=== PATIENT | female | born 1965 | race Caucasian/White ===

== ENCOUNTER 2017-01-26 17:52 | Emergency (ER) | payer OTHER ==
--- NOTE | 2017-01-26 18:34 | DI ---
CLINICAL HISTORY: Dog Bite. Puncture wounds and laceration to the radial side of the wrist. PREVIOUS EXAM: Contralateral wrist from August 14, 2008 FINDINGS/TECHNIQUE: 3 views of the left wrist are obtained, and demonstrate anatomic alignment witho ut fractures. 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 There is some so ft tissue thickening, and stranding, but there is no evidence of radiopaque foreign body nor perioste al reaction. IMPRESSION: 1. No acute bony injury. 2. Soft tissue swelling as above.
[2017-01-26] MEDS: Lidocaine 1% 10 MG/ML - 20 ML VIAL SUBCUT ONE (18:45)
[2017-01-26 18:51] VITALS: RESP 18; TEMP 97
[2017-01-26] MEDS ORDERED: BACITRACIN 0.9 GM PACKET OINT TOPICAL ONE (19:03)
[2017-01-26] MEDS: BACITRACIN 0.9 GM PACKET OINT TOPICAL ONE (19:10)
[2017-01-26] MEDS: Amoxicill/Clav 875/125mg Tab 1 TAB TAB PO SCH (19:10)
--- NOTE | 2017-01-26 19:43 | PDOC ---
Animal Bite HPI - General Chief Complaint: Animal Bite Stated Complaint: dog bite left arm Date Seen by Provider: 01/26/17 Time Seen by Provider: 18:05 Source: POSITIVE: Patient Exam Limitations: POSITIVE: No limitations Nurse's Notes Reviewed & Considered: Yes - History of Present Illness Initial Comments: The patient is a 52-year-old female who presents to the emergency department with a dog bite to her left wrist. She states that she has 2 dogs in her home both of which belonged to her children and she is watching them. She states that the dogs began fighting and she tried to separate them. She states that one of the dogs bit her on the left wrist. She does have pain to the left wrist especially with any movement as well as some associated puncture wounds. She denies any other associated injuries or complaints. She states she last had a tetanus shot a couple of months ago. She is unsure whether the dogs have been immunized for rabies as they belong to her children however she states she will have access to this information and continues to have the dogs in her possession. Have you received a tetanus shot in the past 10 years?: Yes - Patient Home Medications Home Medications: Home Medications Amitriptyline HCl 50 mg PO DAILY 06/10/14 Colesevelam HCl [Welchol] 600 mg PO TID 06/10/14 Duloxetine HCl [Cymbalta] 120 mg PO DAILY 06/10/14 Estropipate 0.75 mg PO DAILY 06/10/14 Gabapentin [Neurontin] 400 mg PO QID 06/10/14 Pravastatin Sodium [Pravachol] 40 mg PO DAILY 06/10/14 Propranolol HCl [Inderal] 40 mg PO DAILY 06/10/14 Ropinirole HCl [Requip] 0.5 mg PO BID 06/10/14 metFORMIN Tab [Glucophage Tab] 1,000 mg PO BID 06/10/14 Amox Tr/Potassium Clavulanate [Augmentin 875-125 Tablet] 1 each PO BID #14 tablet 01/26/17 Hydrocodone Bit/Acetaminophen [[place] 10-325 Tablet] 1 tab PO PRN PRN 01/26/17 Insulin Pump Syringe, 1.8 ml [Minimed [place]] 1 unit SUBCUT AC BK DIN - Patient Allergies Allergies/Adverse Reactions: Allergies Allergy/AdvReac Type Severity Reaction Status Date / Time acetaminophen [From Percocet] AdvReac NAUSEA Verified 01/26/17 18:06 oxycodone HCl [From Percocet] AdvReac NAUSEA Verified 01/26/17 18:06 Past Medical History - heen HEENT History: Denies History Cardiovascular History: Hypertension, Hyperlipidemia Respiratory History: Denies History Gastrointestinal History: Gallbladder Disease, Other (please comment) Additional Gastrointestinal History: hx of cholecystectomy and appendectomy Genitourinary History: Denies History Endocrine History: Type 2 Diabetes (oral), Type 2 Diabetes (insulin) Musculoskeletal History: Other (please comment) Prosthesis or Implant: No Additional Musculoskeletal History: Hx of multiple right knee surgeries Neurological History: Other (please comment) Additional Neurological History: NEUROPATHY Blood Disorders: Denies History Psychiatric History: Depression Female Reproductive History: Hysterectomy Cancer History: Denies History In Past Year Been Physically Harmed or Verbally Threatened: No History of MDRO: No Tobacco Use: Former Smoker Alcohol Use: Rarely Substance Use Type: None Previous Surgical History: Yes Type / Date of Surgery: HYSTERECTOMY. ARACELI. RIGHT KNEE. APPENDECTOMY Significant Family History: No pertinent family hx Past Medical History Reviewed: Reviewed - No Changes ROS - Limitations ROS Limitations: No Limitations (Review of systems otherwise noncontributory) Animal Bite Physical Exam - General Appearance General Appearance: REPORTS: Alert, Cooperative, No Acute Distress - HEENT HEENT: POSITIVE: Head Inspection Nml - Respiratory Respiratory: POSITIVE: No Respiratory Distress, Breath Sounds Normal - Cardiovascular Cardiovascular: POSITIVE: Regular Rate and Rhythm, Heart Sounds Normal - Extremities Additional Extremities Details: Examination left wrist does reveal a puncture to the palmar surface on the ulnar side of the wrist with some extruding fat, there is also a puncture to the dorsum of the wrist at the base of the thumb, she does have limited range of motion at the wrist secondary to pain as well as some generalized swelling of the wrist area, normal sensation and cap refill in her fingers with normal movement of her fingers. - Neuro/Vascular/Tendon Neuro/Vascular/Tendon: POSITIVE: Motor Normal, Sensation Normal Animal Bite Progress - Results Reviewed by me Xrays/CTs/US Reviewed by me: Yes Discussed with Radiologist: Yes Radiology Findings: X-ray of the left wrist is negative for fracture or foreign body per radiologist. - Patient's Progress MDM / ED Course: The wound on the palmar surface of the wrist was injected with lidocaine and cleansed with saline, there was some protruding fat which was trimmed using an iris scissors. The wound on the dorsal surface of the wrist was also cleansed and bandage is applied. X-rays of the left wrist were negative for fracture per radiologist. She was placed in a left wrist splint for comfort. She is advised to continue ice and elevation as well as ibuprofen 600 mg every 6 hours as needed for pain. In addition she was started on Augmentin 875 mg twice a day for 7 days. She is advised return to the emergency room if she develops increased pain or swelling, drainage from the wound, fever, any worsening or change in symptoms. She is advised follow-up with primary care if continued pain in 5-7 days. - Consult Counseled: POSITIVE: Patient, Family, RE: Radiology Results, RE: DX, RE: Need for F/U Patient Care Time - Estimated PCT Patient Care Time (In Minutes): 20 Vital Signs - Recent Vital Signs Vital Signs: Vital Signs (Last 8 hours) Temp Pulse Resp BP Pulse Ox 01/26/17 18:00 97.0 F 89 18 136/78 96 - VS Reviewed Vital Signs Reviewed: Yes Discharge Clinical Impression: Dog bite Discharge Disposition: Discharged to Home Condition: Stable Prescriptions / Orders: Amox Tr/Potassium Clavulanate [Augmentin 875-125 Tablet] 1 each PO BID #14 tablet Patient Instructions Given at Discharge: Animal Bite (ED) Additional Instructions: Wrist splint as needed for comfort. Ice and elevate the left wrist. Start Augmentin 875 mg twice a day for 7 days. Recommend ibuprofen 600 mg every 6 hours as needed for pain. Return to the emergency room if increased pain or swelling, fever, drainage from the wound, any worsening or change in symptoms. Follow-up with primary care if continued pain in 5-7 days. Follow Up With: NONE,NONE [Primary Care Provider] -
== END 2017-01-26 19:15 | disposition home or self-care (01) ==
LOC: ER 17:52
DX: S61.552A Open bite of left wrist, initial encounter (principal); Z79.4 Long term (current) use of insulin; E11.40 Type 2 diabetes mellitus with diabetic neuropathy, unspecified; W54.0XXA Bitten by dog, initial encounter
CPT/HCPCS: 73110; 99282; 99283